=== PATIENT | male | born 1945 | race Caucasian/White ===

== ENCOUNTER → 2020-02-10 08:16 | Outpatient (BNVA) | payer MEDICARE, SELFPAY | PROVIDERS: Family Provider Nurse Practitioner Family; PCP Nurse Practitioner Family; Visit Provider Internal Medicine | DX: E05.90 Thyrotoxicosis, unspecified without thyrotoxic crisis or storm (principal) | CPT/HCPCS: 80053; 84443; 85025 ==

== ENCOUNTER → 2021-07-11 11:35 | Outpatient (BNVA) | payer MEDICARE, SELFPAY | PROVIDERS: Family Provider Nurse Practitioner Family; PCP Nurse Practitioner Family; Visit Provider Nurse Practitioner Family | DX: R39.89 Other symptoms and signs involving the genitourinary system (principal); E03.9 Hypothyroidism, unspecified; E78.5 Hyperlipidemia, unspecified; R63.0 Anorexia; R42 Dizziness and giddiness; R43.9 Unspecified disturbances of smell and taste; R51.9 Headache, unspecified; R26.9 Unspecified abnormalities of gait and mobility; R53.1 Weakness | CPT/HCPCS: 80053; 80061; 81000; 84443; 85025 ==

== ENCOUNTER 2021-07-12 15:51 | Outpatient (CLI) | payer MEDICARE, SELFPAY ==
--- NOTE | 2021-07-12 16:37 | XR_ITS ---
WS: [id number] PA and lateral chest, 07/12/2021 Clinical Data: euvolemic hyponatremia Comparison: PA and lateral chest, 06/29/2015. Findings: No nodules, masses or effusions are seen. There is a patchy opacity in the lingula of the l eft upper lobe which could represent minimal pneumonia and/or atelectasis. There is also minimal patc hy opacity in the right lower lobe which could represent atelectasis and/or minimal pneumonia. The he art is normal. The aortic arch and descending thoracic aorta show mild tortuosity. The pulmonary vasc ularity is not increased. There are surgical clips in the left supraclavicular fossa. XR/XR chest 2V* [id number] Impression: 1. Minimal patchy opacity in the lingula and also in the right lower lobe which could represent pneumonia and/or atelectasis and recommend repeat chest x-ray in 2-3 days. 2. Atherosclerosis
== END 2021-07-12 15:52 | disposition home or self-care (01) ==
LOC: RAD 15:59
PROVIDERS: Family Provider Nurse Practitioner Family; PCP Nurse Practitioner Family; Visit Provider Internal Medicine
DX: E87.1 Hypo-osmolality and hyponatremia (principal)
CPT/HCPCS: 71046

== ENCOUNTER → 2021-07-16 16:22 | Outpatient (BNVA) | payer MEDICARE, SELFPAY | PROVIDERS: Family Provider Nurse Practitioner Family; PCP Nurse Practitioner Family; Visit Provider Internal Medicine | DX: E87.1 Hypo-osmolality and hyponatremia (principal); E03.9 Hypothyroidism, unspecified; E20.9 Hypoparathyroidism, unspecified; K21.9 Gastro-esophageal reflux disease without esophagitis; Z90.02 Acquired absence of larynx | CPT/HCPCS: 80053; 85025 ==

== ENCOUNTER → 2021-07-24 09:54 | Outpatient (BNVA) | payer MEDICARE, SELFPAY | PROVIDERS: Family Provider Nurse Practitioner Family; PCP Nurse Practitioner Family; Visit Provider Otolaryngology | DX: R13.10 Dysphagia, unspecified (principal); B37.9 Candidiasis, unspecified; Z85.21 Personal history of malignant neoplasm of larynx; F17.210 Nicotine dependence, cigarettes, uncomplicated | CPT/HCPCS: 31575; 99204; 99214 ==

== ENCOUNTER 2021-07-24 10:41 | Emergency (ER) | payer MEDICARE, SELFPAY ==
[2021-07-24 11:01] VITALS: BP 131/78; PULSE 92; RESP 19; TEMP 35.8; O2SAT 98; BMI 25.8
[2021-07-24 11:21] LABS: Bilirubin Urine 2+ (Negative); Blood Urine 2+ (Negative); Glucose Urine UA Norm (Normal); Ketones Urine 1+ (Negative); Leukocyte Esterase Urine Negative (Negative); Nitrate Urine Positive (Negative); Protein Urine Trace (Negative); Urine Appearance Clear (CLEAR); Urine Color Amber (Yellow); Urobilinogen Urine 4 mg/dL (Negative); pH Urine 5 (5-7)
--- NOTE | 2021-07-24 11:24 | W.ED.GENADLT ---
HPI - General Adult General: Chief complaint: Urogenital-Male Stated complaint: Not eating and sodium level was low Time Seen by Provider: 07/24/21 11:11 History of Present Illness: Patient is a 75-year-old male with a history of prior laryngeal neoplasm s/p laryngectomy presenting to the emergency room for worsening generalized weakness fatigue x 3 weeks. Patient was initially seen on 07/12 for routine blood work by Dr. Ricketts. Patient was found to have sodium 116. For the last 3 weeks, patient has had decreased p.o. intake, generalized weakness chills malaise. Patient also reports 2 weeks of dark stool. Patient is not currently on any chemotherapy as his laryngeal neoplasm last 12 years ago. Patient denies any cough, runny nose, sore throat, chest pain, shortness breath, abdominal pain, nausea/vomiting, or diarrhea. He denies any history of cirrhosis. Patient has been taking multiple Aleve in the last few days. Earlier today, patient was seen by Dr. Sampson and underwent laryngoscopy and was found to have oral candidiasis. Patient had a sodium of 116 on 07/11/2021 that improved to 130 on repeat blood work on 07/16/2021. Onset: 3 weeks ago Duration:ongoing Location:home Severity:moderate Associated symptoms: Reports malaise; Deny chest pain, dyspnea, nausea, rash, palpitations or vomiting Review of Systems Const: Reports: chills, body aches, fatigue and malaise; Denies: fever(s) Eyes: Denies: change in vision ENMT: Reports: mouth pain (+sore throat) Card: Denies: chest pain or palpitations Resp: Denies: dyspnea or non-productive cough GI: Reports: other (+decreased po intake / + dark stool); Denies: abdominal pain, nausea, vomiting or diarrhea : Reports: dysuria Musc: Denies: extremity pain Skin/Breast: Denies: rash or new lesions Neuro: Denies: weakness in extremities Psych: Reports: other (Normal mood) Tutu/Lymph: Denies: easy bruising PFSH ED PFSH: Medical History B12 deficiency Dyslipidemia GERD (gastroesophageal reflux disease) Hyperglycemia, unspecified Hypothyroidism, unspecified Malignant neoplasm of larynx, unspecified Surgical History H/O colonoscopy 11/27/2018-ASCENDING COLON POLYPS H/O laryngectomy Social History Smoking and tobacco status: current every day smoker (two to three a day ) cigarettes [ Other cigarette details: since he was 19] Alcohol intake: unknown Lives independently: Yes Household members: spouse Housing: House Marital status: Physical Exam Const: COMMON NORMALS: alert HENMT: COMMON NORMALS: atraumatic HEAD & SCALP: atraumatic MOUTH: moist mucous membranes abnormal Eye: COMMON NORMALS: EOMs intact bilaterally and conjunctivae normal CONJUNCTIVA: Yes conjunctivae normal Neck/C-Spine: COMMON NORMALS: full ROM and supple OTHER: +laryngectomy in place Resp: COMMON NORMALS: normal respiratory effort and clear to auscultation bilaterally AUSCULTATION: clear to auscultation bilaterally Cardio: COMMON NORMALS: regular rate RATE: regular rate GI: COMMON NORMALS: Soft to palpation and non-tender PALPATION: Yes Soft to palpation OTHER: No focal TTP. NO guarding rebound, guarding, rigidity. No CVA tenderness to percussion. Neg Gandara/Neg McBurney's point tenderness, no suprabupic tenderness to palpation. Extremity: COMMON NORMALS: full ROM Neuro: SENSORIUM/ORIENTATION: Yes alert MOTOR EXAM: No Abnormal motor strength present and Other motor observations present (no focal motor deficits) Psych: COMMON NORMALS: speech normal SPEECH: Yes normal speech MOOD & AFFECT: Yes euthymic mood Course Vital Signs: Vital signs: Vital Signs Temperature 96.4 F L 07/24/21 11:01 Pulse Rate 81 07/24/21 14:57 Respiratory Rate 16 07/24/21 14:57 Blood Pressure 126/80 07/24/21 14:57 Pulse Oximetry 99 07/24/21 14:57 MDM - General Adult Medical Decision Making 75-year-old male with history of laryngeal neoplasm s/p tracheostomy presenting to the emergency room for evaluation of worsening generalized weakness, decreased p.o. intake, fatigue x3 weeks in the setting of dark stool x2 weeks and low sodium of 117 on 07/12/2021. H&H appears to be stable. Patient is noted to have nitrite positive/bacteria positive UA consistent with early UTI. He received cephalexin in the emergency room. Earlier, patient was also found to have oral thrush on ENT exam. Patient was given 200 mg of Diflucan and 500mg of keflex here. Sodium of 128 tooday. Patient is encouraged to take more salts at home. Patient has been able to tolerate p.o. Rx cephalexin for UTI, diflucan for oral thrush Disposition: Discharge. Patient counseled regarding diagnostic impression, treatment plan. Patient given ED strict return precautions to return for continuation, worsening, or development of new symptoms. Instructed to f/u w/ PCP regarding symptoms today. Patient verbalized understanding. Lab Data : 07/24/21 11:41 07/24/21 11:41 Laboratory Results WBC 14.4 10^3/uL (4.0-10.0) H 07/24/21 11:41 RBC 4.92 10^6/uL (4.1-5.3) 07/24/21 11:41 Hgb 14.3 g/dL (11.7-16.6) 07/24/21 11:41 Hct 40.5 % (42.0-52.0) L 07/24/21 11:41 MCV 82.3 fl (80-94) 07/24/21 11:41 MCH 29.1 pg (28.0-34.0) 07/24/21 11:41 MCHC 35.3 g/dL (30.0-36.0) 07/24/21 11:41 RDW 13.8 % (12.1-15.1) 07/24/21 11:41 Plt Count 277 10^3/cmm (130-400) 07/24/21 11:41 MPV 10.7 fL (7.4-10.4) H 07/24/21 11:41 Lymph % (Auto) Not Reportable 07/24/21 11:41 [place] % (Auto) Not Reportable 07/24/21 11:41 Lymph # (Auto) Not Reportable 07/24/21 11:41 [place] # (Auto) Not Reportable 07/24/21 11:41 Total Counted 100 (0-100) 07/24/21 11:41 Atypical Lymphs % 1.0 % (0-5) 07/24/21 11:41 Absolute Neutrophils 10.8 10^3/cmm (1.4-6.5) H 07/24/21 11:41 Segmented Neutrophils 49 % 07/24/21 11:41 Abs Segm Neuts (Man) 7.1 10/cmm (1.6-7.1) 07/24/21 11:41 Band Neutrophils 26.0 % 07/24/21 11:41 Abs Band Neuts (Man) 3.7 10^3/cmm (0.0-1.2) H 07/24/21 11:41 Absolute Lymphocytes 1.7 10^3/cmm (1.2-3.4) 07/24/21 11:41 Lymphocytes (Manual) 11 % 07/24/21 11:41 Monocytes (Manual) 13.0 % 07/24/21 11:41 Absolute Monocytes 1.9 10^3/cmm (0.1-0.6) H 07/24/21 11:41 Eosinophils (Manual) 0 % 07/24/21 11:41 Absolute Eosinophils 0.0 10^3/cmm (0.0-0.7) 07/24/21 11:41 Basophils (Manual) Not Reportable 07/24/21 11:41 Platelet Estimate Normal (Normal) 07/24/21 11:41 Polychromasia Trace 07/24/21 11:41 Sodium 128 mmol/L (136-145) L 07/24/21 11:41 Potassium 4.0 mmol/L (3.5-5.1) 07/24/21 11:41 Chloride 88 mmol/L (98-107) L 07/24/21 11:41 Carbon Dioxide 24 mmol/L (22-29) 07/24/21 11:41 Anion Gap 20.0 (5-19) H 07/24/21 11:41 BUN 24 mg/dL (8-23) H 07/24/21 11:41 Creatinine 0.8 mg/dL (0.7-1.2) 07/24/21 11:41 GFR Calculation Not Reportable 07/24/21 11:41 Glucose 94 mg/dL (65-115) 07/24/21 11:41 Calculated Osmolality 270 mOsm/kg (285-295) L 07/24/21 11:41 Calcium 9.7 mg/dL (8.5-10.5) 07/24/21 11:41 Magnesium 1.9 mg/dL (1.7-2.3) 07/24/21 11:41 Urine Color Franc[place]a (Yellow) 07/24/21 10:55 Urine Appearance Clear (CLEAR) 07/24/21 10:55 Urine pH 5 (5-7) 07/24/21 10:55 Ur Specific [place] 1.020 (1.005-1.030) 07/24/21 10:55 Urine Protein Trace (Negative) 07/24/21 10:55 Urine Glucose (UA) Norm (Normal) 07/24/21 10:55 Urine Ketones 1+ (Negative) H 07/24/21 10:55 Urine Blood 2+ (Negative) H 07/24/21 10:55 Urine Nitrate Positive (Negative) H 07/24/21 10:55 Urine Bilirubin 2+ (Negative) H 07/24/21 10:55 Urine Urobilinogen 4 mg/dL (Negative) H 07/24/21 10:55 Ur Leukocyte Esterase Negative (Negative) 07/24/21 10:55 Urine RBC 0-4 /hpf (0-2) H 07/24/21 10:55 Urine WBC 0-4 /hpf (0-5) H 07/24/21 10:55 Ur Squamous Epith Cells None /hpf (0-5) 07/24/21 10:55 Amorphous Sediment 1+ /hpf 07/24/21 10:55 Urine Bacteria Trace /hpf (NONE) 07/24/21 10:55 Hyaline Casts 0-4 /lpf H 07/24/21 10:55 Fine Granular Casts 0-4 /lpf H 07/24/21 10:55 Urine Mucus 3+ /hpf 07/24/21 10:55 Urine Sperm 2+ /hpf 07/24/21 10:55 Discharge Plan Discharge Patient Disposition: Home Clinical Impression: Thrush, Acute UTI Condition: Stable Prescriptions: New cephalexin 500 mg capsule 500 mg PO BID 7 Days Qty: 14 0RF fluconazole [Diflucan] 100 mg tablet 100 mg PO DAILY 14 Days Qty: 14 0RF No Action omeprazole 10 mg capsule,delayed release(DR/EC) 10 mg PO DAILY 0RF cholecalciferol (vitamin D3) 25 mcg (1,000 unit) capsule 25 mcg PO DAILY 0RF levothyroxine 125 mcg capsule 125 mcg PO DAILY Qty: 90 0RF diphenhydramine HCl [Benadryl] 25 mg capsule 25 mg PO BEDTIME PRN (Reason: Allergy Symptoms) 0RF docusate sodium [Colace] 100 mg capsule 100 mg PO DAILY PRN (Reason: Constipation) 0RF calcium carbonate [Calcium 500] 500 mg calcium (1,250 mg) Tablet 500 mg PO DAILY 0RF ondansetron HCl 4 mg tablet 4 mg PO Q6H PRN (Reason: nausea and vomiting) Qty: 20 0RF Ativan 0.5 mg tablet 0.5 - 1 mg PO DAILY PRN (Reason: sleep) Qty: 20 0RF oxycodone 5 mg tablet 5 mg PO .q4-6h PRN (Reason: pain) Qty: 20 0RF Discharge Orders: Discharge ED (Routine); Ordered 07/24/21 Ordered By: Hilton Glaser Referrals: Harini Sweeney, CERTIFIED ORTHOTIST/PEDORTHIST [Primary Care Provider] - Discharge Diet: Advance as tolerated Discharge Activity: Increase activity as tolerated Activity Restrictions/Additional Instructions: Please take your antibiotics as instructed. Watch out for signs of skin changes/redness, mouth redeness or swelling, nausea/vomiting, diarrhea, blood in the urine or any new or concering complaints. Coding Level of Care Code ED Enrollment Nurse for Elpidio Fwd Exam Comprehensive
[2021-07-24 11:25] LABS: Amorphous Sediment Urine 1+ /hpf; Bacteria Urine TRACE /hpf; Mucus Urine 3+ /hpf; RBC Urine 0-4 /hpf (0-2); WBC Urine 0-4 /hpf (0-5)
[2021-07-24 11:26] LABS: Fine Granular Casts Urine 0-4 /lpf; Hyaline Casts Urine 0-4 /lpf; Sperm Urine 2+ /hpf
[2021-07-24 11:27] LABS: Add Urine Culture? Yes
[2021-07-24 12:39] LABS: Hematocrit 40.5 % (42.0-52.0); Hemoglobin 14.3 g/dL (11.7-16.6); Mean Corpuscular HGB Conc 35.3 g/dL (30.0-36.0); Mean Corpuscular Hemoglobin 29.1 pg (28.0-34.0); Mean Corpuscular Volume 82.3 fl (80-94); Mean Platelet Volume 10.7 fL (7.4-10.4); Platelet Count 277 10^3/cmm (130-400); Red Blood Count 4.92 10^6/uL (4.1-5.3); Red Cell Distribution Width 13.8 % (12.1-15.1); White Blood Count 14.4 10^3/uL (4.0-10.0)
[2021-07-24 12:47] VITALS: PULSE 89; RESP 16; O2SAT 99
[2021-07-24 12:47] LABS: Blood Urea Nitrogen 24 mg/dL (8-23); Calcium 9.7 mg/dL (8.5-10.5); Carbon Dioxide 24 mmol/L (22-29); Chloride 88 mmol/L (98-107); Glucose 94 mg/dL (65-115); Magnesium 1.9 mg/dL (1.7-2.3); Osmolality Calculated 270 mOsm/kg (285-295); Sodium 128 mmol/L (136-145)
[2021-07-24] MEDS: fluconazole 100 mg Tablet 200 MG PO (13:12)
[2021-07-24] MEDS: cephALEXin 500 mg Capsule PO (13:13)
[2021-07-24 14:31] LABS: Absolute Neutrophil 10.8 10^3/cmm (1.4-6.5); Absolute Segmented Neutrophil 7.1 10/cmm (1.6-7.1); Band Neutrophils Absolute 3.7 10^3/cmm (0.0-1.2); Eosinophils 0 %; Lymphocytes 11 %; Lymphocytes Absolute 1.7 10^3/cmm (1.2-3.4); Monocytes Absolute 1.9 10^3/cmm (0.1-0.6); Platelet Estimate Normal (Normal); Polychromasia Trace; Segmented Neutrophils 49 %; Total Cells Counted 100 (0-100)
[2021-07-24 14:57] VITALS: BP 126/80; PULSE 81; RESP 16; O2SAT 99
== END 2021-07-24 14:58 | disposition home or self-care (01) ==
PROVIDERS: Family Medicine; Emergency Provider Emergency Medicine; PCP Nurse Practitioner Family
DX: B37.9 Candidiasis, unspecified (principal); N39.0 Urinary tract infection, site not specified; C32.9 Malignant neoplasm of larynx, unspecified; E03.9 Hypothyroidism, unspecified; F17.210 Nicotine dependence, cigarettes, uncomplicated; Z93.0 Tracheostomy status; R13.10 Dysphagia, unspecified; Z85.21 Personal history of malignant neoplasm of larynx
CPT/HCPCS: 31575; 80048; 81001; 83735; 85007; 85025; 87086; 99204; 99214; 99283

== ENCOUNTER 2021-07-28 10:15 | Emergency (ER) | payer MEDICARE, SELFPAY ==
[2021-07-28 10:32] VITALS: BP 105/70; PULSE 84; RESP 16; TEMP 36.6; O2SAT 97; BMI 25.0
[2021-07-28 10:51] VITALS: BP 104/60; PULSE 78; RESP 16; O2SAT 95
--- NOTE | 2021-07-28 10:51 | ECG_ITS ---
[facility] Test Date: 2021-07-28 Pat Name: Zac Arias Department: Room: Gender: Male Health Information Technician: : 1945 Requested By: Harley Coles Order Number: [id number] Keyla MD: Elliott Blackburn M.D. Measurements Intervals [place] Rate: 83 P: 42 [place]: 143 QRS: 42 QRSD: 89 T: 37 QT: 400 QTc: 473 Interpretive Statements SINUS RHYTHM No previous ECG available for comparison Electronically Signed On 07-29-2021 9:19:49 CDT by Elliott Blackburn M.D. [email or web address]
--- NOTE | 2021-07-28 10:52 | XRR_ITS ---
PROCEDURE INFORMATION: Exam: XR Chest Exam date and time: 07/28/2021 11:19 AM Age: 75 years old Clinical indication: Cough; Prior surgery; Additional info: Dyspnea/cough TECHNIQUE: Imaging protocol: XR of the chest. Views: 1 view. COMPARISON: CR XR chest 2V* [id number] 07/12/2021 4:37 PM FINDINGS: Lungs: Calcified granuloma noted in the right mid lung. No consolidation. Pleural spaces: Unremarkable. No pleural effusion. No pneumothorax. Heart/Mediastinum: Unremarkable. No cardiomegaly. Bones/joints: Unremarkable. XR/XR chest 1V portable [id number] IMPRESSION: No acute findings.
[2021-07-28] MEDS: sodium chloride 0.9% 1,000 ML 999 ML IV ×2 (10:57→13:32)
[2021-07-28 11:23] VITALS: BP 104/60; PULSE 84; RESP 16; O2SAT 96
[2021-07-28 11:27] LABS: Hematocrit 43.8 % (42.0-52.0); Hemoglobin 15.8 g/dL (11.7-16.6); Mean Corpuscular HGB Conc 36.1 g/dL (30.0-36.0); Mean Corpuscular Hemoglobin 28.7 pg (28.0-34.0); Mean Corpuscular Volume 79.6 fl (80-94); Mean Platelet Volume 10.1 fL (7.4-10.4); Platelet Count 259 10^3/cmm (130-400); Red Cell Distribution Width 14.4 % (12.1-15.1); White Blood Count 15.5 10^3/uL (4.0-10.0)
--- NOTE | 2021-07-28 11:32 | CTR_ITS ---
PROCEDURE INFORMATION: Exam: CT Abdomen And Pelvis With Contrast Exam date and time: 07/28/2021 11:49 AM Age: 75 years old Clinical indication: Abdominal pain; Additional info: Abd pain TECHNIQUE: Imaging protocol: Computed tomography of the abdomen and pelvis with contrast. Radiation optimization: All CT scans at this facility use at least one of these dose optimization techniques: automated exposure control; mA and/or kV adjustment per patient size (includes targeted exams where dose is matched to clinical indication); or iterative reconstruction. Contrast material: OMNI 300; Contrast volume: 95 ml; Contrast route: INTRAVENOUS (IV); COMPARISON: CT chest wo con [id number] 06/29/2015 8:51 AM RADIATION DOSE METRICS: Total DLP (mGy-cm): 1650.61 FINDINGS: Pleural spaces: Small lobulated areas of pleural thickening and consolidative opacities seen in the partially visualized left lung base. Liver: Innumerable, irregular hypodense lesions throughout the liver. Hepatomegaly with the right hepatic lobe measuring up to 25 cm in length. These findings are new from most recent comparison. Gallbladder and bile ducts: Contracted gallbladder. No ductal dilation. Pancreas: Normal. No ductal dilation. Spleen: Normal. No splenomegaly. Adrenal glands: Normal. No mass. Kidneys and ureters: Normal. No hydronephrosis. Stomach and bowel: Colonic diverticulosis. No obstruction. No mucosal thickening. Appendix: No evidence of appendicitis. Intraperitoneal space: Unremarkable. No free air. No significant fluid collection. Vasculature: Unremarkable. No abdominal aortic aneurysm. Lymph nodes: Unremarkable. No enlarged lymph nodes. Urinary bladder: Unremarkable as visualized. Reproductive: Unremarkable as visualized. Bones/joints: No acute fracture. No irregular lytic or blastic bone lesions. Grade 1 anterolisthesis of L5 on S1 with bilateral pars defects. Soft tissues: Unremarkable. CT/CT abdomen pelvis w con* [id number] IMPRESSION: 1. Innumerable hypodense lesions throughout the liver with hepatomegaly suspicious for metastatic disease of unknown primary. 2. Small lobulated areas of pleural thickening and consolidative opacities seen in the partially visualized left lower lobe, dedicated CT chest is recommended to evaluate for possible malignancy.
[2021-07-28 11:42] LABS: Alanine Aminotransferase 508 U/L (0-41); Albumin Level 3.4 g/dL (3.5-5.2); Anion Gap 25.5 (5-19); Blood Urea Nitrogen 79 mg/dL (8-23); Calcium 9.7 mg/dL (8.5-10.5); Carbon Dioxide 22 mmol/L (22-29); Chloride 85 mmol/L (98-107); Creatinine Clr Calc Pharmacy 37.4669; Globulin 3.4 g/dL (1.3-4.6); Glucose 115 mg/dL (65-115); Osmolality Calculated 291 mOsm/kg (285-295); Potassium 4.5 mmol/L (3.5-5.1); Sodium 128 mmol/L (136-145); Total Protein 6.8 g/dL (6.6-8.7)
[2021-07-28 11:48] LABS: INR 1.42 (0.8-1.2)
[2021-07-28] MEDS: iohexol 300 mg/mL 100 mL Btl IV (11:48)
[2021-07-28 11:49] LABS: Partial Thromboplastin Time 30.8 SECONDS (23.9-36.7)
--- NOTE | 2021-07-28 12:08 | ED_ITS ---
HPI - Weakness General: Chief complaint: Weakness Stated complaint: Not eating or drinking and getting worse Time Seen by Provider: 07/28/21 10:49 Source: patient and family Mode of arrival: ambulatory Limitations: no limitations History of Present Illness: 75-year-old male presents emergency room with generalized weakness Pressly worsening about the last 5 to 6 days although there are some described NC between him and his . Patient has previous had a laryngectomy due to cancer this was about 10+ years ago. He is not able to vocalize even when he occludes the tracheostomy. The says its been over the last for 5 days he wrote down that it was 6 weeks. And the said he has been getting worse the last few weeks but markedly worse the last few days. No fever sweats or chills. He is obviously significantly jaundiced he states that occurred in the last few days as well. states he is very fatigued and he has been a hard time eating and drinking. His urine has become quite dark. He has progressively had more pain or weight loss and shortness of breath as well. Patient was seen in the ER 4 days ago. At that time he was treated for thrush and cystitis. He is mildly hypokalemic with a sodium of 128 his white count was 14 4 and his hemoglobin was stable. BMP is unremarkable he did not have liver functions done at that visit. MD Complaint: generalized weakness Onset (ago): day(s) (5-6, see HPI) Duration: constant Location: generalized Severity: severe Relieving factors: none Exacerbating factors: none Associated symptoms: Reports myalgias, nausea and short of breath; Denies chest pain, chills, confusion, melena, decreased appetite, diaphoresis, dysuria, easy bruising, fever(s), headache(s), rash, syncope or vomiting Review of Systems Const: Reports: body aches, change in appetite, change in weight, fatigue and malaise; Denies: fever(s), chills or diaphoresis ENMT: Denies: throat pain, ear or mastoid pain, nasal discharge or nasal congestion Card: Denies: chest pain, palpitations, irregular heart rhythm, edema, swelling of feet/ankles or syncope Resp: Denies: dyspnea, productive cough or non-productive cough GI: Reports: nausea; Denies: abdominal pain, vomiting, hematemesis, coffee ground emesis, dysphagia, constipation, GI cramping or melena : Denies: flank pain, difficulty urinating, dysuria, urinary frequency or urinary urgency Musc: Denies: neck pain, back pain or extremity pain Skin/Breast: Denies: rash or pruritus Neuro: Denies: headache(s) or confusion Tutu/Lymph: Denies: easy bruising PFSH ED PFSH: Medical History B12 deficiency Dyslipidemia GERD (gastroesophageal reflux disease) Hyperglycemia, unspecified Hypothyroidism, unspecified Malignant neoplasm of larynx, unspecified Surgical History H/O colonoscopy 11/27/2018-ASCENDING COLON POLYPS H/O laryngectomy Social History Smoking and tobacco status: current every day smoker (two to three a day ) cigarettes [ Other cigarette details: since he was 19] Alcohol intake: unknown Lives independently: Yes Household members: spouse Housing: House Marital status: Physical Exam Const: GENERAL APPEARANCE: cooperative and comfortable ORIENTATION/CONSCIOUSNESS: Yes awake, Yes oriented to person, Yes oriented to place and Yes oriented to time HENMT: COMMON NORMALS: normocephalic, atraumatic, hearing grossly normal bilaterally, external ears normal, EAC's normal, TM's normal bilaterally, Normal nasal mucous membranes and turbinates present, moist oral mucous membranes and oropharynx normal HEAD & SCALP: normocephalic and atraumatic NOSE: Normal nasal mucous membranes and turbinates present EXTERNAL EAR: Yes external ears normal EXTERNAL AUDITORY CANAL: EAC's normal TYMPANIC MEMBRANE: TM's normal bilaterally Eye: COMMON NORMALS: Equal, round and reactive pupils present, EOMs intact bilaterally and conjunctivae normal CONJUNCTIVA: Yes conjunctivae normal SCLERA: scleral abnormal Laterality of scleral abnormality: positive bilateral scleral icterus PUPIL: Yes Equal, round and reactive pupils present Neck/C-Spine: COMMON NORMALS: full ROM, no lymphadenopathy, supple and no JVD OTHER: Tracheostomy present no abnormalities at's Lymph: LYMPHATIC: no lymphadenopathy noted and no lymphedema noted Resp: COMMON NORMALS: normal respiratory effort, No retractions, No use of accessory muscles and clear to auscultation bilaterally AUSCULTATION: clear to auscultation bilaterally Cardio: COMMON NORMALS: no JVD, regular rate, regular rhythm and No murmurs present (Cardio) RATE: regular rate RHYTHM: regular rhythm GI: COMMON NORMALS: Soft to palpation and No hepatosplenomegaly present AUSCULTATION: Yes normoactive bowel sounds PALPATION: Yes Soft to palpation, No Tenderness to palpation present (GI), No Guarding due to palpation present (GI) and Yes No hepatosplenomegaly present Extremity: COMMON NORMALS: normal to inspection, capillary refill normal, no clubbing, cyanosis or edema, no calf tenderness and no pedal edema Neuro: SENSORIUM/ORIENTATION: Yes oriented to person, Yes oriented to place and Yes oriented to time Skin: COMMON NORMALS: no rashes or lesions noted GENERAL SKIN EXAM: no rashes or lesions noted Course Vital Signs: Vital signs: Vital Signs Temperature 98 F 07/28/21 10:32 Pulse Rate 85 07/28/21 14:22 Respiratory Rate 16 07/28/21 14:22 Blood Pressure 145/69 07/28/21 14:22 Pulse Oximetry 98 07/28/21 14:22 MDM - Weakness Medical Decision Making Reviewed findings with family. After discussion decided to discharge patient home. Given Ativan and oxycodone. Referral to oncology. We also discussed comfort cares. Medical Records I reviewed the patient's medical records. Lab Data I reviewed the patient's lab results. : 07/28/21 11:10 07/28/21 11:10 Radiology Impressions Chest X-Ray 07/28/21 10:52 IMPRESSION: No acute findings. Abdomen/Pelvis CT 07/28/21 11:32 IMPRESSION: 1. Innumerable hypodense lesions throughout the liver with hepatomegaly suspicious for metastatic disease of unknown primary. 2. Small lobulated areas of pleural thickening and consolidative opacities seen in the partially visualized left lower lobe, dedicated CT chest is recommended to evaluate for possible malignancy. Laboratory Results WBC 15.5 10^3/uL (4.0-10.0) H 07/28/21 11:10 Corrected WBC 14.8 10^3/cmm (4.8-10.8) H 07/28/21 11:10 RBC 5.50 10^6/uL (4.1-5.3) H 07/28/21 11:10 Hgb 15.8 g/dL (11.7-16.6) 07/28/21 11:10 Hct 43.8 % (42.0-52.0) 07/28/21 11:10 MCV 79.6 fl (80-94) L 07/28/21 11:10 MCH 28.7 pg (28.0-34.0) 07/28/21 11:10 MCHC 36.1 g/dL (30.0-36.0) H 07/28/21 11:10 RDW 14.4 % (12.1-15.1) 07/28/21 11:10 Plt Count 259 10^3/cmm (130-400) 07/28/21 11:10 MPV 10.1 fL (7.4-10.4) 07/28/21 11:10 Lymph % (Auto) Not Reportable 07/28/21 11:10 [place] % (Auto) Not Reportable 07/28/21 11:10 Lymph # (Auto) Not Reportable 07/28/21 11:10 [place] # (Auto) Not Reportable 07/28/21 11:10 Total Counted 100 (0-100) 07/28/21 11:10 Atypical Lymphs % 0.0 % (0-5) 07/28/21 11:10 Absolute Neutrophils 8.1 10^3/cmm (1.4-6.5) H 07/28/21 11:10 Segmented Neutrophils 29 % 07/28/21 11:10 Abs Segm Neuts (Man) 4.5 10/cmm (1.6-7.1) 07/28/21 11:10 Band Neutrophils 23.0 % 07/28/21 11:10 Abs Band Neuts (Man) 3.6 10^3/cmm (0.0-1.2) H 07/28/21 11:10 Absolute Lymphocytes 3.3 10^3/cmm (1.2-3.4) 07/28/21 11:10 Lymphocytes (Manual) 21 % 07/28/21 11:10 Monocytes (Manual) 19.0 % 07/28/21 11:10 Absolute Monocytes 2.9 10^3/cmm (0.1-0.6) H 07/28/21 11:10 Eosinophils (Manual) 3 % 07/28/21 11:10 Absolute Eosinophils 0.4 10^3/cmm (0.0-0.7) 07/28/21 11:10 Basophils (Manual) 0.0 % 07/28/21 11:10 Absolute Basophils 0.0 10^3/cmm (0.0-0.2) 07/28/21 11:10 Metamyelocytes 1.0 % 07/28/21 11:10 Myelocytes 1.0 % 07/28/21 11:10 Promyelocytes 1.0 % 07/28/21 11:10 Nucleated RBCs 5.0 /100WBC (0-1) H 07/28/21 11:10 Blast Cells 2 % (0-0) H* 07/28/21 11:10 Platelet Estimate Normal (Normal) 07/28/21 11:10 Microcytosis 1+ H 07/28/21 11:10 PT 17.70 SECONDS (12.1-14.9) H 07/28/21 11:10 INR 1.42 (0.8-1.2) H 07/28/21 11:10 APTT 30.8 SECONDS (23.9-36.7) 07/28/21 11:10 Sodium 128 mmol/L (136-145) L 07/28/21 11:10 Potassium 4.5 mmol/L (3.5-5.1) 07/28/21 11:10 Chloride 85 mmol/L (98-107) L 07/28/21 11:10 Carbon Dioxide 22 mmol/L (22-29) 07/28/21 11:10 Anion Gap 25.5 (5-19) H 07/28/21 11:10 BUN 79 mg/dL (8-23) H 07/28/21 11:10 Creatinine 1.6 mg/dL (0.7-1.2) H 07/28/21 11:10 GFR Calculation Not Reportable 07/28/21 11:10 Glucose 115 mg/dL (65-115) 07/28/21 11:10 Calculated Osmolality 291 mOsm/kg (285-295) 07/28/21 11:10 Calcium 9.7 mg/dL (8.5-10.5) 07/28/21 11:10 Total Bilirubin 17.5 mg/dL (0.15-1.2) H* 07/28/21 11:10 AST 1018 U/L (0-40) H 07/28/21 11:10 ALT 508 U/L (0-41) H 07/28/21 11:10 Alkaline Phosphatase 1880 IU/L (40-130) H* 07/28/21 11:10 Ammonia 24 umol/L (16-60) 07/28/21 12:03 Total Protein 6.8 g/dL (6.6-8.7) 07/28/21 11:10 Albumin 3.4 g/dL (3.5-5.2) L 07/28/21 11:10 Globulin 3.4 g/dL (1.3-4.6) 07/28/21 11:10 Lipase 810 U/L (13-60) H 07/28/21 11:10 Urine Color Dark yellow (Yellow) 07/28/21 12:30 Urine Appearance Clear (CLEAR) 07/28/21 12:30 Urine pH 5 (5-7) 07/28/21 12:30 Ur Specific [place] 1.015 (1.005-1.030) 07/28/21 12:30 Urine Protein Trace (Negative) 07/28/21 12:30 Urine Glucose (UA) Norm (Normal) 07/28/21 12:30 Urine Ketones 1+ (Negative) H 07/28/21 12:30 Urine Blood 2+ (Negative) H 07/28/21 12:30 Urine Nitrate Negative (Negative) 07/28/21 12:30 Urine Bilirubin 2+ (Negative) H 07/28/21 12:30 Urine Urobilinogen 4 mg/dL (Negative) H 07/28/21 12:30 Ur Leukocyte Esterase Trace (Negative) H 07/28/21 12:30 Urine RBC None /hpf (0-2) 07/28/21 12:30 Urine WBC 0-4 /hpf (0-5) H 07/28/21 12:30 Ur Squamous Epith Cells Rare /hpf (0-5) 07/28/21 12:30 Amorphous Sediment 2+ /hpf 07/28/21 12:30 Urine Bacteria 1+ /hpf (NONE) H 07/28/21 12:30 Hyaline Casts 0-4 /lpf H 07/28/21 12:30 Hepatitis A IgM Ab Non-reactive (Nonreactive) 07/28/21 11:10 Hep Bs Antigen Non-reactive (Nonreactive) 07/28/21 11:10 Hep B Core IgM Ab Non-reactive (Nonreactive) 07/28/21 11:10 Hepatitis C Antibody Non-reactive (Nonreactive) 07/28/21 11:10 Discharge Plan Discharge Patient Disposition: Home Clinical Impression: Cancer, metastatic to liver, Thrush, Acute UTI Condition: Stable Prescriptions: New ondansetron HCl 4 mg tablet 4 mg PO Q6H PRN (Reason: nausea and vomiting) Qty: 20 0RF Ativan 0.5 mg tablet 0.5 - 1 mg PO DAILY PRN (Reason: sleep) Qty: 20 0RF oxycodone 5 mg tablet 5 mg PO .q4-6h PRN (Reason: pain) Qty: 20 0RF No Action omeprazole 10 mg capsule,delayed release(DR/EC) 10 mg PO DAILY 0RF cholecalciferol (vitamin D3) 25 mcg (1,000 unit) capsule 25 mcg PO DAILY 0RF levothyroxine 125 mcg capsule 125 mcg PO DAILY Qty: 90 0RF diphenhydramine HCl [Benadryl] 25 mg capsule 25 mg PO BEDTIME PRN (Reason: Allergy Symptoms) 0RF docusate sodium [Colace] 100 mg capsule 100 mg PO DAILY PRN (Reason: Constipation) 0RF calcium carbonate [Calcium 500] 500 mg calcium (1,250 mg) Tablet 500 mg PO DAILY 0RF Discharge Orders: Discharge ED (Routine); Ordered 07/28/21 Ordered By: Harley Collazo Referrals: Harini Sweeney, [facility] [facility] [Primary Care Provider] - Discharge Diet: Usual diet Discharge Activity: Increase activity as tolerated Patient Instructions: Opioid Safety Activity Restrictions/Additional Instructions: Case management make arrangements for follow-up with oncology next week. Coding Level of Care Code ED Business Information Manager for [place] Fwd Exam Comprehensive
[2021-07-28 12:23] LABS: Lipase 810 U/L (13-60)
[2021-07-28 12:26] LABS: Slide Review Slide Review Perform
[2021-07-28 12:27] LABS: Hepatitis A Antibody IgM Non-Reactive (Nonreactive); Hepatitis B Core IgM Non-Reactive (Nonreactive); Hepatitis B Surface Antigen Non-Reactive (Nonreactive); Hepatitis C Virus Antibody Non-Reactive (Nonreactive)
[2021-07-28 12:44] LABS: Absolute Eosinophils 0.4 10^3/cmm (0.0-0.7); Absolute Segmented Neutrophil 4.5 10/cmm (1.6-7.1); Band Neutrophils Absolute 3.6 10^3/cmm (0.0-1.2); Corrected White Blood Count 14.8 10^3/cmm (4.8-10.8); Eosinophils 3 %; Lymphocytes 21 %; Monocytes Absolute 2.9 10^3/cmm (0.1-0.6); Segmented Neutrophils 29 %; Total Cells Counted 100 (0-100)
[2021-07-28 12:45] LABS: Absolute Neutrophil 8.1 10^3/cmm (1.4-6.5); Lymphocytes Absolute 3.3 10^3/cmm (1.2-3.4); Microcytosis 1+; Platelet Estimate Normal (Normal)
[2021-07-28 12:47] LABS: Blastocytes 2 % (0-0)
[2021-07-28 12:48] LABS: Aspartate Amino Transferase 1018 U/L (0-40)
[2021-07-28 12:49] LABS: Total Bilirubin 17.5 mg/dL (0.15-1.2)
[2021-07-28 12:50] LABS: Alkaline Phosphatase 1880 IU/L (40-130)
[2021-07-28 13:00] LABS: Glucose Urine UA Norm (Normal); Protein Urine Trace (Negative); Specific Gravity, Urine 1.015 (1.005-1.030); Urine Appearance Clear (CLEAR); Urine Color Dark Yellow (Yellow); pH Urine 5 (5-7)
[2021-07-28 13:01] LABS: Add Urine Microscopic? YES; Bilirubin Urine 2+ (Negative); Blood Urine 2+ (Negative); Ketones Urine 1+ (Negative); Leukocyte Esterase Urine Trace (Negative); Nitrate Urine Negative (Negative); Urobilinogen Urine 4 mg/dL (Negative)
[2021-07-28 13:02] LABS: Squamous Epithelial Cell Urine RARE /hpf (0-5); WBC Urine 0-4 /hpf (0-5)
[2021-07-28 13:03] LABS: Add Urine Culture? No; Amorphous Sediment Urine 2+ /hpf; Bacteria Urine 1+ /hpf; Hyaline Casts Urine 0-4 /lpf
[2021-07-28 13:07] VITALS: BP 134/69; PULSE 87; RESP 16; O2SAT 97
[2021-07-28 13:16] LABS: Ammonia 24 umol/L (16-60)
[2021-07-28 14:22] VITALS: BP 145/69; PULSE 85; RESP 16; O2SAT 98
--- NOTE | 2021-07-30 11:14 | DCPLANNER ---
Addendum entered by Basia Omer 08/03/21 13:09: Patient . Original Note: wind project manager had message to schedule a follow up appointment for patient with oncology. Patient has to be seen by general surgery first. wind project manager sent patients information to the front office staff at general surgery. Patients information will be printed and reviewed. Clinic will call patient with appointment information.
== END 2021-07-28 14:25 | disposition home or self-care (01) ==
PROVIDERS: Emergency Provider Family Medicine; PCP Nurse Practitioner Family
DX: C78.7 Secondary malignant neoplasm of liver and intrahepatic bile duct (principal); C80.1 Malignant (primary) neoplasm, unspecified; N39.0 Urinary tract infection, site not specified; B37.9 Candidiasis, unspecified; R11.0 Nausea; F17.210 Nicotine dependence, cigarettes, uncomplicated; Z85.21 Personal history of malignant neoplasm of larynx; Z90.02 Acquired absence of larynx; Z93.0 Tracheostomy status
CPT/HCPCS: 36415; 71045; 74177; 80053; 80074; 80503; 81001; 82140; 83690; 85007; 85025; 85610; 85730; 87040; 93005; 96360; 96361; 99285; J7030; Q9967